=== PATIENT | male | born 1935 | race Hispanic/Latino ===

== ENCOUNTER → 2024-12-27 | Outpatient (CLI) | payer OTHER, MEDICARE ==
--- NOTE | 2024-12-28 10:42 | HMCIMG ---
NM BONE SCAN WHOLE BODY REASON: MALIGNANT NEOPLASM OF PROSTATE. COMPARISON: None TECHNIQUE: Total body bone imaging study was performed with 23 mCi of technetium MDP through intravenous route. 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 Degenerative changes are seen. No scintigraphic evidence of bone metastases is seen. IMPRESSION: No scintigraphic evidence of bone metastases is seen.
== END | disposition home or self-care (01) ==
LOC: RAH 12:03
PROVIDERS: ATTEND Urology
DX: C61 Malignant neoplasm of prostate (principal); M47.819 Spondylosis without myelopathy or radiculopathy, site unspecified
CPT/HCPCS: 78306; A9503